=== PATIENT | male | born 1955 | race Caucasian/White ===

== ENCOUNTER → 2019-11-21 | Outpatient (CLI) | payer MEDICARE, MEDICAID | LOC: M LABSMTC 13:43 | PROVIDERS: ATTEND Family Medicine | DX: Z20.828 Contact with and (suspected) exposure to other viral communicable diseases (principal) | CPT/HCPCS: C9803; U0003 ==

== ENCOUNTER → 2020-01-22 | Outpatient (CLI) | payer SELFPAY | LOC: M LABSMTC 12:59 | PROVIDERS: ATTEND Pediatrics | DX: Z20.828 Contact with and (suspected) exposure to other viral communicable diseases (principal) ==

== ENCOUNTER 2021-11-19 16:02 | Emergency (ER) | payer OTHER, MEDICAID ==
[2021-11-19] MEDS ORDERED: BOOSTRIX/ADACEL VACCINE (DIPHTH/PERTUSS/ACELL/TETANUS) 0.5ML SYR IM ONE (16:50)
[2021-11-19] MEDS ORDERED: LIDOCAINE W/EPINEPHRINE 1% 20ML VIAL SC ONE (16:50)
[2021-11-19] MEDS ORDERED: CEPH500C PO (17:44)
[2021-11-19] MEDS ORDERED: NEOSPORIN OINT 0.9 GM PKT TOP ONE (17:45)
[2021-11-19] MEDS ORDERED: CEPHALEXIN 500 MG CAP PO ONE (17:45)
[2021-11-19 18:03] VITALS: BP 141/69
== END 2021-11-19 18:10 | disposition home or self-care (01) ==
LOC: M ED 16:02
DX: S51.812A Laceration without foreign body of left forearm, initial encounter (principal); W26.0XXA Contact with knife, initial encounter; C61 Malignant neoplasm of prostate; E78.5 Hyperlipidemia, unspecified; I10 Essential (primary) hypertension; F17.200 Nicotine dependence, unspecified, uncomplicated; Y92.9 Unspecified place or not applicable; Y93.89 Activity, other specified; Y99.9 Unspecified external cause status; Z79.899 Other long term (current) drug therapy

== ENCOUNTER → 2024-12-05 | Outpatient (REF) | payer MEDICARE, MEDICAID ==
[~2024-12-05] MED LIST: CEPH500C PO
== END ==
LOC: EEVIPCON 12:10 → M LAB REF 12:10
PROVIDERS: ATTEND Internal Medicine
DX: H66.91 Otitis media, unspecified, right ear (principal)